=== PATIENT | male | born 1990 | race Caucasian/White ===

== ENCOUNTER 2022-04-05 10:30 | Emergency (ER) | payer BC ==
[2022-04-05] MEDS ORDERED: Tetracaine HCl/PF 0.5% 4 ML Bottle EYEBOTH ONE (11:12)
[2022-04-05] MEDS ORDERED: Acetaminophen 325 MG Tab PO ONE (11:32)
[2022-04-05] MEDS ORDERED: Ibuprofen 400 MG Tab PO ONE (11:32)
[2022-04-05] MEDS ORDERED: Fluorescein 1 MG Ophth Strip EYELF ONE (11:33)
== END 2022-04-05 12:21 | disposition home or self-care (01) ==
LOC: MW.ED 10:30
DX: S05.02XA Injury of conjunctiva and corneal abrasion without foreign body, left eye, initial encounter (principal)
CPT/HCPCS: 99283; A9270